=== PATIENT | female | born 2000 | race Caucasian/White ===

== ENCOUNTER 2020-12-25 10:27 | Emergency (ER) | payer OTHER ==
[~2020-12-25 10:27] MED LIST: IBUPROFEN600 MG PO; NEOSPORIN OINT15 GM TOP
[2020-12-25] MEDS ORDERED: AMOXICILLIN875 MG PO (11:40)
== END 2020-12-25 12:18 | disposition home or self-care (01) ==
LOC: ER1 10:27
DX: J02.0 Streptococcal pharyngitis (principal); F17.290 Nicotine dependence, other tobacco product, uncomplicated
CPT/HCPCS: 87081; 87880; 99283

== ENCOUNTER 2022-02-13 23:57 | Inpatient (IN) | payer OTHER ==
[~2022-02-13] VITALS: Ht 154.9 cm; Wt 74.8 kg
[~2022-02-13 23:57] MED LIST changes: +AMOXICILLIN875 MG PO
[2022-02-14 01:27] LABS: RED BLOOD COUNT 4.04 M/UL (4.00-5.10)
[2022-02-14] MEDS ORDERED: COLACE100 MG PO (15:12)
[2022-02-14] MEDS ORDERED: IBUPROFEN600 MG PO (15:12)
[2022-02-15 06:48] LABS: HEMOGLOBIN 12.2 gm/dl (12.3-15.3)
[2022-02-16] MEDS ORDERED: HYDROCODON-ACE1 EAC4 PO (06:04)
== END 2022-02-16 15:18 | disposition home or self-care (01) | DRG 807 ==
LOC: GENOP 23:57 → OB 02-14 01:10
PROVIDERS: Obstetrics & Gynecology; ADMIT Obstetrics & Gynecology
PROC: 10E0XZZ Delivery of Products of Conception, External Approach (ICD-10-PCS; principal; 2022-02-14)
PROC: 0KQM0ZZ Repair Perineum Muscle, Open Approach (ICD-10-PCS; 2022-02-14)
PROC: 3E033VJ Introduction of Other Hormone into Peripheral Vein, Percutaneous Approach (ICD-10-PCS; 2022-02-14)
PROC: 10H07YZ Insertion of Other Device into Products of Conception, Via Natural or Artificial Opening (ICD-10-PCS; 2022-02-14)
PROC: 4A1H7CZ Monitoring of Products of Conception, Cardiac Rate, Via Natural or Artificial Opening (ICD-10-PCS; 2022-02-14)
PROC: 10H073Z Insertion of Monitoring Electrode into Products of Conception, Via Natural or Artificial Opening (ICD-10-PCS; 2022-02-14)
PROC: 3E0234Z Introduction of Serum, Toxoid and Vaccine into Muscle, Percutaneous Approach (ICD-10-PCS; 2022-02-14)
DX: O60.14X0 Preterm labor third trimester with preterm delivery third trimester, not applicable or unspecified (principal); Z37.0 Single live birth; O70.1 Second degree perineal laceration during delivery; O42.02 Full-term premature rupture of membranes, onset of labor within 24 hours of rupture; Z3A.36 36 weeks gestation of pregnancy; Z83.3 Family history of diabetes mellitus; Z82.49 Family history of ischemic heart disease and other diseases of the circulatory system; Z80.41 Family history of malignant neoplasm of ovary; Z81.8 Family history of other mental and behavioral disorders; Z88.8 Allergy status to other drugs, medicaments and biological substances; Z23 Encounter for immunization
CPT/HCPCS: 36415; 85014; 85018; 85025; 90715; J2405; J2590